=== PATIENT | female | born 1985 | race Caucasian/White ===

== ENCOUNTER 2017-07-10 08:41 | Emergency (ER) | payer MEDICAID ==
[~2017-07-10] VITALS: Ht 162.6 cm; Wt 75.0 kg
[~2017-07-10 08:41] MED LIST: HYDR-569 PO
[2017-07-10] MEDS ORDERED: AMOX-101 PO (08:56)
[2017-07-10 09:01] VITALS: BP 136/86
== END 2017-07-10 09:03 | disposition home or self-care (01) ==
LOC: ER 08:42
DX: J02.9 Acute pharyngitis, unspecified (principal); G43.909 Migraine, unspecified, not intractable, without status migrainosus; K21.9 Gastro-esophageal reflux disease without esophagitis; Z88.5 Allergy status to narcotic agent
CPT/HCPCS: 99283